=== PATIENT | male | born 1960 | race Caucasian/White ===

== ENCOUNTER → 2017-06-05 | Outpatient (CLI) | payer MEDICARE, MEDICAID ==
[~2017-06-05] MED LIST: CELEXA40 MG PO; FLOMAX 0.40.4 MG/CAP PO; LEVOXYL0.1 MG PO; LITHIUM 30300 MG/CAP PO; MAXZIDE-25MG TA1 TAB PO; PROLIX10TA PO; TRICOR145 MG PO; ZOCOR 80MG80 MG PO; ZOFRAN 4MG T4 MG/TAB PO
== END ==
LOC: COL.RAD 12:41
DX: N18.3 Chronic kidney disease, stage 3 (moderate) (principal)

== ENCOUNTER 2017-07-05 14:04 | Emergency (ER) | payer MEDICARE, MEDICAID ==
[~2017-07-05] VITALS: Ht 188 cm; Wt 107.3 kg
[2017-07-05 14:10] VITALS: BP 140/81; TEMP 97.9
[2017-07-05] MEDS ORDERED: LIPITOR 80MG80 MG PO (14:32)
[2017-07-05] MEDS ORDERED: CLARITIN 1010 MG/TAB PO (14:35)
[2017-07-05] MEDS ORDERED: PRINIVIL5 MG PO (14:35)
[2017-07-05] MEDS ORDERED: SINGULAIR 110 MG/TAB PO (14:36)
[2017-07-05] MEDS ORDERED: MYRBETR50MG PO (14:36)
[2017-07-05 14:49] LABS: BASO # 0.1 (0.0-0.2); BASO % 0.5 % (0.0-2.0); EOS # 0.2 (0.0-0.7); EOS % 1.6 % (0-4.0); GRAN % 70.2 % (42.2-75.2); HEMATOCRIT 42.5 % (42.0-52.0); HEMOGLOBIN 14.3 g/dl (13.5-18.0); LYMPH # 2.1 (1.2-3.4); LYMPH % 18.6 % (20.0-51.0); MEAN CELL VOLUME 89 fl (80.0-100.0); MEAN CORPUSCULAR HEMOGLOBIN 30 pg (27.0-31.0); MEAN CORPUSCULAR HGB CONC 34 g/dl (33.0-37.0); MONO % 8.7 % (1.7-9.3); PLATELET COUNT 300 K/mm3 (130-400); REDCELL DISTRIBUTION WIDTH-CV 12.4 % (11.5-14.5)
[2017-07-05 14:59] LABS: ACETAMINOPHEN < 10 ug/mL (10-30); ALANINE AMINOTRANSFERASE 83 U/L (21-72); ALBUMIN 4.9 gm/dL (3.5-5.0); ALCOHOL(ethanol),MEDICAL < 10 mg/dL; ALKALINE PHOSPHATASE 104 U/L (50-136); ANION GAP 13 mmol/L (7-16); AST,SGOT 90 U/L (15-37); BILIRUBIN,TOTAL 0.6 mg/dL (0.0-1.0); BLOOD UREA NITROGEN 24 mg/dL (9-20); CALCIUM 10.3 mg/dL (8.4-10.2); CARBON DIOXIDE 21 mmol/L (22-30); CHLORIDE 102 mmol/L (98-107); CREATININE, serum 1.93 mg/dL (0.66-1.25); GLUCOSE 109 mg/dL (74-106); POTASSIUM 4.4 mmol/L (3.4-5.0); SALICYLATE < 1.0 mg/dL; SODIUM 137 mmol/L (137-145)
[2017-07-05 15:07] LABS: LITHIUM 0.2 mmol/L (0.6-1.2)
[2017-07-05 15:29] LABS: TRICYCLIC ANTIDEPRESS URINE NEGATIVE
[2017-07-05 18:03] VITALS: PULSE 94
== END 2017-07-05 18:04 | disposition home or self-care (01) ==
LOC: COL.ER 14:04
PROVIDERS: Emergency Medicine
DX: R44.0 Auditory hallucinations (principal); F20.9 Schizophrenia, unspecified; F25.9 Schizoaffective disorder, unspecified; N18.6 End stage renal disease; I12.0 Hypertensive chronic kidney disease with stage 5 chronic kidney disease or end stage renal disease; N40.0 Benign prostatic hyperplasia without lower urinary tract symptoms

== ENCOUNTER 2017-07-08 22:38 | Inpatient (IN) | payer MEDICARE, MEDICAID ==
[~2017-07-08] VITALS: Ht 185.4 cm; Wt 99.1 kg
[~2017-07-08 22:38] MED LIST changes: +CLARITIN 1010 MG/TAB PO; +LIPITOR 80MG80 MG PO; +MYRBETR50MG PO; +PRINIVIL5 MG PO; +SINGULAIR 110 MG/TAB PO
[2017-07-08 23:23] LABS: BASO % 0.2 % (0.0-2.0); EOS # 0.1 (0.0-0.7); EOS % 0.6 % (0-4.0); GRAN # 9.6 (1.4-6.5); GRAN % 78.3 % (42.2-75.2); HEMATOCRIT 44.2 % (42.0-52.0); HEMOGLOBIN 14.2 g/dl (13.5-18.0); LYMPH # 1.6 (1.2-3.4); LYMPH % 13.3 % (20.0-51.0); MEAN CELL VOLUME 91 fl (80.0-100.0); MEAN CORPUSCULAR HEMOGLOBIN 29 pg (27.0-31.0); MEAN CORPUSCULAR HGB CONC 32 g/dl (33.0-37.0); MEAN PLATELET VOLUME 9.4 fl (7.4-10.4); MONO # 0.9 (0.1-0.6); MONO % 7.4 % (1.7-9.3); PLATELET COUNT 314 K/mm3 (130-400); RED BLOOD COUNT 4.85 M/mm3 (4.20-5.60); REDCELL DISTRIBUTION WIDTH-CV 12.4 % (11.5-14.5)
[2017-07-08 23:34] LABS: ACETAMINOPHEN < 10 ug/mL (10-30); ALANINE AMINOTRANSFERASE 231 U/L (21-72); ALCOHOL(ethanol),MEDICAL < 10 mg/dL; ALKALINE PHOSPHATASE 96 U/L (50-136); ANION GAP 12 mmol/L (7-16); AST,SGOT 307 U/L (15-37); BILIRUBIN,TOTAL 0.7 mg/dL (0.0-1.0); BLOOD UREA NITROGEN 35 mg/dL (9-20); CALCIUM 10.4 mg/dL (8.4-10.2); CARBON DIOXIDE 23 mmol/L (22-30); CHLORIDE 106 mmol/L (98-107); CREATININE, serum 2.35 mg/dL (0.66-1.25); GLUCOSE 125 mg/dL (74-106); POTASSIUM 3.9 mmol/L (3.4-5.0); SALICYLATE < 1.0 mg/dL; SODIUM 141 mmol/L (137-145); TOTAL PROTEIN 8.2 gm/dL (6.4-8.2)
[2017-07-08 23:43] LABS: LITHIUM < 0.2 mmol/L (0.6-1.2)
[2017-07-08 23:59] LABS: INR 1.3 (0.8-3.0)
[2017-07-09 00:34] LABS: COLLECTION METHOD CLEAN CATCH
[2017-07-09 00:43] LABS: MUCOUS Present /lpf; PH 5 (5-8); SQUAMOUS EPITHELIAL None Seen /hpf; URINE APPEARANCE Clear; URINE BACTERIA None Seen /hpf; URINE BILIRUBIN Negative (NEGATIVE); URINE BLOOD 3+ (NEGATIVE); URINE COLOR Yellow; URINE GLUCOSE Negative (NEGATIVE); URINE KETONE Negative (NEGATIVE); URINE LEUKOCYTE ESTERASE Negative (NEGATIVE); URINE NITRATE Negative (NEGATIVE); URINE PROTEIN(semi-quant) 1+ (NEGATIVE); URINE RBC 0-2 /hpf; URINE UROBILINOGEN Negative (NEGATIVE)
[2017-07-09 00:46] LABS: TRICYCLIC ANTIDEPRESS URINE NEGATIVE
[2017-07-09 02:56] VITALS: BP 161/87; PULSE 92; TEMP 98.4
[2017-07-09 06:57] VITALS: BP 146/80; PULSE 72; TEMP 98.4
[2017-07-09 06:59] LABS: MAGNESIUM 2.3 mg/dL (1.6-2.3)
[2017-07-09 09:29] VITALS: BP 122/82; PULSE 76; TEMP 98.2
[2017-07-09 10:46] LABS: ANION GAP 6 mmol/L (7-16); BLOOD UREA NITROGEN 29 mg/dL (9-20); C-REACTIVE PROTEIN 1.1 mg/dL (0.0-0.9); CALCIUM 9.7 mg/dL (8.4-10.2); CARBON DIOXIDE 24 mmol/L (22-30); CHLORIDE 111 mmol/L (98-107); CREATININE, serum 1.92 mg/dL (0.66-1.25); GLUCOSE 117 mg/dL (74-106); POTASSIUM 4.1 mmol/L (3.4-5.0); SODIUM 141 mmol/L (137-145)
[2017-07-09 11:04] LABS: LITHIUM < 0.2 mmol/L (0.6-1.2)
[2017-07-09] MEDS ORDERED: MIDAMOR 5MG TAB5 MG PO (11:58)
[2017-07-09] MEDS ORDERED: CELEXA40 MG PO (11:59)
[2017-07-09 12:00] LABS: CREATINE KINASE 4706 U/L (55-170)
[2017-07-09] MEDS ORDERED: LEVOXYL0.15 MG PO (12:01)
[2017-07-09 15:04] VITALS: BP 132/60; PULSE 68; TEMP 98.6
[2017-07-09 18:54] LABS: CALCIUM 9.4 mg/dL (8.4-10.2); CREATININE, serum 1.88 mg/dL (0.66-1.25); POTASSIUM 4.1 mmol/L (3.4-5.0)
[2017-07-09 18:58] VITALS: BP 165/87; PULSE 86; TEMP 97.6
[2017-07-09 23:31] VITALS: BP 158/86; PULSE 82; TEMP 98.3
[2017-07-10 02:24] VITALS: BP 130/56; PULSE 89
[2017-07-10 06:25] LABS: BASO % 0.4 % (0.0-2.0); EOS # 0.2 (0.0-0.7); EOS % 2.2 % (0-4.0); GRAN # 6.3 (1.4-6.5); GRAN % 68.5 % (42.2-75.2); HEMATOCRIT 37.1 % (42.0-52.0); LYMPH # 1.9 (1.2-3.4); MEAN CELL VOLUME 93 fl (80.0-100.0); MEAN CORPUSCULAR HEMOGLOBIN 30 pg (27.0-31.0); MEAN CORPUSCULAR HGB CONC 32 g/dl (33.0-37.0); MEAN PLATELET VOLUME 9.5 fl (7.4-10.4); MONO # 0.7 (0.1-0.6); MONO % 7.6 % (1.7-9.3); PLATELET COUNT 262 K/mm3 (130-400); RED BLOOD COUNT 3.99 M/mm3 (4.20-5.60); REDCELL DISTRIBUTION WIDTH-CV 12.6 % (11.5-14.5)
[2017-07-10 06:29] VITALS: BP 155/88; BP 161/88; PULSE 82; TEMP 98.8
[2017-07-10 06:36] LABS: HEMOGLOBIN 11.8 g/dl (13.5-18.0)
[2017-07-10 06:44] LABS: ALBUMIN 3.6 gm/dL (3.5-5.0); BILIRUBIN,TOTAL 0.3 mg/dL (0.0-1.0); CALCIUM 9.5 mg/dL (8.4-10.2); CREATININE, serum 1.67 mg/dL (0.66-1.25); POTASSIUM 3.9 mmol/L (3.4-5.0); TOTAL PROTEIN 6.6 gm/dL (6.4-8.2)
[2017-07-10 09:37] VITALS: BP 174/95; PULSE 83; TEMP 98.9
[2017-07-10 14:12] VITALS: BP 149/81; PULSE 77; TEMP 98.3
[2017-07-10 17:13] VITALS: BP 157/82; PULSE 80; TEMP 96.6
[2017-07-10 21:25] VITALS: BP 168/98; PULSE 123; TEMP 98.4
[2017-07-11 02:14] VITALS: BP 126/77; PULSE 89; TEMP 98.2
[2017-07-11 05:56] VITALS: BP 116/78; PULSE 78; TEMP 98.4
[2017-07-11 07:20] LABS: CALCIUM 9.8 mg/dL (8.4-10.2); CREATININE, serum 1.58 mg/dL (0.66-1.25); POTASSIUM 3.8 mmol/L (3.4-5.0)
[2017-07-11 09:28] VITALS: BP 116/70; PULSE 100; TEMP 97.4
[2017-07-11 13:45] LABS: ALANINE AMINOTRANSFERASE 114 U/L (21-72); AST,SGOT 52 U/L (15-37)
[2017-07-11 14:46] VITALS: BP 138/77; PULSE 91; TEMP 98.4
[2017-07-11 14:51] LABS: CK total - for Isoenzymes 3851 U/L (52 - 336)
[2017-07-11 18:13] VITALS: BP 169/90; PULSE 92; TEMP 98.4
[2017-07-11 22:22] VITALS: BP 162/84; PULSE 99; TEMP 98.2
[2017-07-12 02:16] VITALS: BP 158/88; PULSE 94
[2017-07-12 09:25] VITALS: BP 147/94; PULSE 75; TEMP 98
[2017-07-12 09:29] LABS: ALBUMIN 3.6 gm/dL (3.5-5.0); BILIRUBIN,TOTAL 0.3 mg/dL (0.0-1.0); CREATININE, serum 1.76 mg/dL (0.66-1.25); POTASSIUM 3.5 mmol/L (3.4-5.0); TOTAL PROTEIN 6.5 gm/dL (6.4-8.2)
[2017-07-12 13:49] VITALS: BP 144/96; PULSE 85; TEMP 97.8
[2017-07-12 14:01] LABS: CK total - for Isoenzymes 294 U/L (52 - 336)
[2017-07-12 17:15] VITALS: BP 133/77; PULSE 79; TEMP 97.9
[2017-07-13 08:02] LABS: ALBUMIN 3.4 gm/dL (3.5-5.0); BILIRUBIN,TOTAL 0.3 mg/dL (0.0-1.0); CALCIUM 9.8 mg/dL (8.4-10.2); CREATININE, serum 1.69 mg/dL (0.66-1.25); POTASSIUM 3.5 mmol/L (3.4-5.0); TOTAL PROTEIN 6.4 gm/dL (6.4-8.2)
[2017-07-13 09:19] VITALS: BP 129/85; PULSE 79; TEMP 97.9
[2017-07-13 13:33] VITALS: BP 136/87; PULSE 77; TEMP 98.1
[2017-07-13 17:37] VITALS: BP 147/85; PULSE 72; TEMP 97.7
[2017-07-13 20:32] VITALS: BP 157/97; PULSE 74; TEMP 98
[2017-07-14 02:03] VITALS: BP 158/90; PULSE 71; TEMP 98.2
[2017-07-14 05:49] VITALS: BP 146/83; PULSE 68; TEMP 98.7
[2017-07-14 09:32] VITALS: BP 147/68; PULSE 91; TEMP 98
[2017-07-14 13:31] VITALS: BP 115/68; PULSE 89; TEMP 97.9
[2017-07-14 18:24] VITALS: BP 120/70; PULSE 82; TEMP 98.5
[2017-07-14 21:09] VITALS: BP 135/84; PULSE 84; TEMP 98.5
[2017-07-15 02:11] VITALS: BP 156/85; PULSE 75; TEMP 97.5
[2017-07-15 05:31] VITALS: BP 144/78; PULSE 68; TEMP 97.5
[2017-07-15 07:00] LABS: ALBUMIN 3.8 gm/dL (3.5-5.0); BILIRUBIN,TOTAL 0.2 mg/dL (0.0-1.0); CALCIUM 9.7 mg/dL (8.4-10.2); CREATININE, serum 1.77 mg/dL (0.66-1.25); TOTAL PROTEIN 6.8 gm/dL (6.4-8.2)
[2017-07-15 09:31] VITALS: BP 125/77; PULSE 71; TEMP 97.8
[2017-07-15 13:35] LABS: CK total - for Isoenzymes 570 U/L (52 - 336)
[2017-07-15 14:23] LABS: HEMATOCRIT 41.6 % (42.0-52.0); MEAN CELL VOLUME 95 fl (80.0-100.0); MEAN CORPUSCULAR HEMOGLOBIN 30 pg (27.0-31.0); MEAN CORPUSCULAR HGB CONC 31 g/dl (33.0-37.0); MEAN PLATELET VOLUME 10.1 fl (7.4-10.4); PLATELET COUNT 296 K/mm3 (130-400); RED BLOOD COUNT 4.39 M/mm3 (4.20-5.60); REDCELL DISTRIBUTION WIDTH-CV 12.6 % (11.5-14.5)
[2017-07-15 14:24] VITALS: BP 108/77; PULSE 80; TEMP 97.5
[2017-07-15 17:30] VITALS: BP 126/83; PULSE 66; TEMP 97.7
[2017-07-16 05:11] VITALS: BP 144/90; PULSE 67; TEMP 97.1
[2017-07-16 10:30] VITALS: BP 119/61; PULSE 74; TEMP 97.6
[2017-07-16 14:57] VITALS: BP 125/67; PULSE 87
[2017-07-16 18:18] VITALS: BP 137/81; PULSE 87; TEMP 98.2
[2017-07-16 22:58] VITALS: BP 118/68; PULSE 73; TEMP 98.6
[2017-07-17 02:00] VITALS: BP 120/70; PULSE 70; TEMP 98.6
[2017-07-17 06:11] VITALS: BP 115/55; PULSE 60; TEMP 98
[2017-07-17 10:00] VITALS: BP 115/54; PULSE 61; TEMP 98
[2017-07-17 15:00] VITALS: BP 115/54; PULSE 61; TEMP 98
== END 2017-07-17 15:35 | DRG 885 ==
LOC: COL.ER 22:38 → SURG 07-09 01:47
PROVIDERS: Emergency Medicine; Internal Medicine; Psychiatry & Neurology Psychiatry
DX: F25.0 Schizoaffective disorder, bipolar type (principal); M62.82 Rhabdomyolysis; I10 Essential (primary) hypertension; E03.9 Hypothyroidism, unspecified
CPT/HCPCS: 99223-AI; G0103; G0463; J1630; J1650; J2060; J3480; J7030

== ENCOUNTER 2017-07-24 14:42 | Observation (INO) | payer MEDICARE, MEDICAID ==
[~2017-07-24] VITALS: Ht 185.4 cm; Wt 96.9 kg
[~2017-07-24 14:42] MED LIST changes: +LEVOXYL0.15 MG PO; +MIDAMOR 5MG TAB5 MG PO
[2017-07-24 15:44] LABS: TRICYCLIC ANTIDEPRESS URINE NEGATIVE
[2017-07-24 16:04] LABS: BASO % 0.4 % (0.0-2.0); EOS # 0.2 (0.0-0.7); EOS % 2.4 % (0-4.0); GRAN # 5.6 (1.4-6.5); GRAN % 66.5 % (42.2-75.2); HEMATOCRIT 40.4 % (42.0-52.0); LYMPH # 1.9 (1.2-3.4); LYMPH % 22.6 % (20.0-51.0); MEAN CELL VOLUME 91 fl (80.0-100.0); MEAN CORPUSCULAR HEMOGLOBIN 29 pg (27.0-31.0); MEAN CORPUSCULAR HGB CONC 32 g/dl (33.0-37.0); MEAN PLATELET VOLUME 9.7 fl (7.4-10.4); MONO # 0.6 (0.1-0.6); MONO % 7.6 % (1.7-9.3); PLATELET COUNT 249 K/mm3 (130-400); RED BLOOD COUNT 4.45 M/mm3 (4.20-5.60); REDCELL DISTRIBUTION WIDTH-CV 12.8 % (11.5-14.5)
[2017-07-24 16:13] LABS: ALANINE AMINOTRANSFERASE 55 U/L (21-72); ALBUMIN 3.6 gm/dL (3.5-5.0); ALKALINE PHOSPHATASE 69 U/L (50-136); ANION GAP 8 mmol/L (7-16); AST,SGOT 22 U/L (15-37); BILIRUBIN,TOTAL 0.3 mg/dL (0.0-1.0); BLOOD UREA NITROGEN 29 mg/dL (9-20); CALCIUM 9.4 mg/dL (8.4-10.2); CARBON DIOXIDE 22 mmol/L (22-30); CHLORIDE 111 mmol/L (98-107); CREATININE, serum 2.13 mg/dL (0.66-1.25); GLUCOSE 86 mg/dL (74-106); POTASSIUM 4.1 mmol/L (3.4-5.0); SODIUM 141 mmol/L (137-145); TOTAL PROTEIN 6.5 gm/dL (6.4-8.2)
[2017-07-24 16:22] LABS: ACETAMINOPHEN < 10 ug/mL (10-30); ALCOHOL(ethanol),MEDICAL < 10 mg/dL; SALICYLATE < 1.0 mg/dL
[2017-07-24 21:42] LABS: COLLECTION METHOD CLEAN CATCH
[2017-07-24 21:48] LABS: MUCOUS Present /lpf; PH 5 (5-8); SQUAMOUS EPITHELIAL None Seen /hpf; URINE APPEARANCE Clear; URINE BACTERIA None Seen /hpf; URINE BILIRUBIN Negative (NEGATIVE); URINE BLOOD Negative (NEGATIVE); URINE COLOR Straw; URINE GLUCOSE Negative (NEGATIVE); URINE KETONE Negative (NEGATIVE); URINE LEUKOCYTE ESTERASE Negative (NEGATIVE); URINE NITRATE Negative (NEGATIVE); URINE PROTEIN(semi-quant) Negative (NEGATIVE); URINE RBC 0-2 /hpf; URINE UROBILINOGEN Negative (NEGATIVE)
[2017-07-25 01:13] VITALS: BP 140/107; PULSE 82; TEMP 98.1
[2017-07-25 03:58] VITALS: BP 124/89; PULSE 62; TEMP 97.2
[2017-07-25 06:02] LABS: CALCIUM 9.6 mg/dL (8.4-10.2); CREATININE, serum 1.91 mg/dL (0.66-1.25); POTASSIUM 3.7 mmol/L (3.4-5.0)
== END 2017-07-25 13:15 ==
LOC: COL.ER 14:42 → ICU 21:42
PROVIDERS: Emergency Medicine; Nurse Practitioner; Nurse Practitioner Primary Care
DX: F20.0 Paranoid schizophrenia (principal); N40.0 Benign prostatic hyperplasia without lower urinary tract symptoms; I10 Essential (primary) hypertension; M62.82 Rhabdomyolysis; E03.9 Hypothyroidism, unspecified; Z81.8 Family history of other mental and behavioral disorders
CPT/HCPCS: G0378

== ENCOUNTER 2017-07-25 14:40 | Observation (INO) | payer MEDICARE, MEDICAID ==
[~2017-07-25] VITALS: Ht 188 cm; Wt 106.0 kg
[2017-07-25 17:16] VITALS: O2SAT 85
[2017-07-25 21:11] VITALS: O2SAT 91
== END 2017-07-25 20:57 ==
LOC: ICU 14:40
DX: F20.0 Paranoid schizophrenia (principal); N40.0 Benign prostatic hyperplasia without lower urinary tract symptoms; I10 Essential (primary) hypertension; Z88.8 Allergy status to other drugs, medicaments and biological substances
CPT/HCPCS: G0378; G0379